=== PATIENT | male | born 2000 | race Caucasian/White ===

== ENCOUNTER 2019-08-27 15:49 | Emergency (ER) | payer OTHER ==
[~2019-08-27] VITALS: Ht 195.6 cm; Wt 99.8 kg
[2019-08-27] MEDS ORDERED: MOBIC7.5 MG PO (16:41)
[2019-08-27 18:03] VITALS: BP 136/71
== END 2019-08-27 18:04 | disposition home or self-care (01) ==
LOC: ER 15:49
DX: S83.8X2A Sprain of other specified parts of left knee, initial encounter (principal); Z98.890 Other specified postprocedural states; X50.0XXA Overexertion from strenuous movement or load, initial encounter; Y92.89 Other specified places as the place of occurrence of the external cause; Y93.89 Activity, other specified; Y99.8 Other external cause status